=== PATIENT | male | born 1945 | race Caucasian/White ===

== ENCOUNTER 2019-05-26 23:03 | Emergency (ER) | payer SELFPAY ==
[~2019-05-26] VITALS: Ht 175.3 cm; Wt 83.9 kg
[2019-05-27 00:23] VITALS: BP 133/66
== END 2019-05-27 01:18 | disposition left against medical advice (07) ==
LOC: EDBD 23:03 → ER 23:06
DX: I10 Essential (primary) hypertension (principal); Z53.21 Procedure and treatment not carried out due to patient leaving prior to being seen by health care provider